=== PATIENT | male | born 1995 | race Caucasian/White ===

== ENCOUNTER 2021-12-09 13:10 | Emergency (ER) | payer SELFPAY ==
[2021-12-09] MEDS ORDERED: Sodium Chloride 0.9% 10 ML Syringe FLUSH PRN (13:23)
[2021-12-09] MEDS ORDERED: Sodium Chloride 0.9% 1,000 ML IV ONE ×2 (13:26→17:55)
[2021-12-09] MEDS ORDERED: Ondansetron 4 MG/2 ML SDV IVPUSH ONE (13:26)
[2021-12-09 13:43] LABS: CHLORIDE,CL 102 mEq/L (98-106); SODIUM,NA 138 mEq/L (136-145)
[2021-12-09 13:49] LABS: ESTIMATED GFR 106 mL/min (>=60)
[2021-12-09] MEDS ORDERED: Ketorolac 30 MG/ML SDV IVPUSH ONE (14:28)
[2021-12-09] MEDS ORDERED: Acetaminophen 500 MG Tab PO ONE (14:38)
[2021-12-09] MEDS ORDERED: LORazepam 2 MG/ML Syringe ONE (15:38)
[2021-12-09] MEDS ORDERED: LORazepam 2 MG/ML Syringe IVPUSH PRN (16:00)
[2021-12-09 16:29] LABS: AMPHETAMINES,URINE NEGATIVE (NEGATIVE); BARBITURATES,URINE NEGATIVE (NEGATIVE); BENZODIAZEPINE,URINE NEGATIVE (NEGATIVE); MDMA (ECSTASY), URINE NEGATIVE (NEGATIVE); METHADONE,URINE NEGATIVE (NEGATIVE); METHAMPHETAMINES,URINE NEGATIVE (NEGATIVE); OPIATES,URINE NEGATIVE (NEGATIVE); OXYCODONE,URINE NEGATIVE (NEGATIVE); PHENCYCLIDINE,URINE NEGATIVE (NEGATIVE); TCA,URINE NEGATIVE (NEGATIVE)
[2021-12-09] MEDS: levETIRAcetam in NaCl (iso-os) 500 MG in Premix Bag 1 BAG IV SCH ×6 (16:50→17:27)
[2021-12-10] MEDS ORDERED: Ondansetron 4 MG/2 ML SDV ONE (00:21)
== END 2021-12-09 18:30 ==
LOC: CC.ED 13:10
DX: G40.909 Epilepsy, unspecified, not intractable, without status epilepticus (principal); Z79.899 Other long term (current) drug therapy; Z20.822 Contact with and (suspected) exposure to COVID-19
CPT/HCPCS: 36415; 70450; 80053; 80305-QW; 81001; 83735; 85025; 93010; 96361; 96365; 96375; 99284; 99285-25; A9270-GY; J1953; J2060; J2405; J7030; U0002

== ENCOUNTER 2021-12-24 12:40 | Emergency (ER) | payer OTHER, BC ==
[2021-12-24] MEDS ORDERED: Bacitracin/Neomycin/Polymyxin B Oint 0.9 GM U/D Packet TOP ONE (13:23)
[2021-12-24] MEDS ORDERED: Lidocaine 1% 30 ML SDV INJECT ONE (13:23)
== END 2021-12-24 14:08 | disposition home or self-care (01) ==
LOC: CC.ED 12:40 → EDSTATUS 15:49
DX: S01.111A Laceration without foreign body of right eyelid and periocular area, initial encounter (principal); W22.8XXA Striking against or struck by other objects, initial encounter; Y92.69 Other specified industrial and construction area as the place of occurrence of the external cause
CPT/HCPCS: 12011; 99282